=== PATIENT | female | born 1945 | race Caucasian/White ===

== ENCOUNTER 2017-05-05 05:07 | Inpatient (IN) | payer OTHER ==
[~2017-05-05] VITALS: Ht 160 cm; Wt 64.5 kg
[2017-05-05 05:44] LABS: BASOPHIL % 0.2 % (0-2)
[2017-05-05 05:45] LABS: PLATELET COUNT 86 x10^3mcL (130-400); RED CELL DISTRIBUTION WIDTH 15.6 % (11.5-14.5)
[2017-05-05 05:53] LABS: CARBON DIOXIDE 22.5 mmol/L (21-32); CREATININE SERUM 1.1 mg/dL (0.6-1.0); POTASSIUM SERUM 3.5 mmol/L (3.5-5.1)
[2017-05-05 06:00] LABS: ALBUMIN 3.6 g/dL (3.4-5.0); BILIRUBIN TOTAL 1.26 mg/dL (0.20-1.00); TOTAL PROTEIN, SERUM 6.7 g/dL (6.4-8.2)
[2017-05-05] MEDS ORDERED: METFORMIN HCL500 MG PO (08:05)
[2017-05-05] MEDS ORDERED: ZESTRIL20 MG PO (08:05)
[2017-05-05] MEDS ORDERED: NOR5 PO (08:05)
[2017-05-05 09:08] LABS: T3 TOTAL 1.05 ng/mL
[2017-05-05 10:20] VITALS: BP 99/58
[2017-05-05 10:22] LABS: CHOLESTEROL/HDL RATIO 2.6; MAGNESIUM 1.2 mg/dL (1.8-2.4)
[2017-05-05 10:25] LABS: FREE T4 1.27 ng/dL (0.76-1.46); FREE THYROXINE INDEX 3.1 ug/dL (1.4-4.5); T4(THYROXINE) 8.4 ug/dL (4.7-13.3)
[2017-05-05 17:45] VITALS: BP 108/87
[2017-05-05 18:22] LABS: UA SPECIFIC GRAVITY 1.015 (1.005-1.035); microscopic required? YES; urine erythrocyte TRACE (NEGATIVE)
[2017-05-05 21:15] VITALS: BP 93/53
[2017-05-06 05:55] LABS: BASOPHIL % 0.3 % (0-2)
[2017-05-06 06:19] LABS: ALKALINE PHOSPHATASE 87 U/L (46-116); ALT/SGPT 43 U/L (14-59); AST/SGOT 27 U/L (15-37); BILIRUBIN TOTAL 1.1 mg/dL (0.20-1.00); CALCIUM 8.6 mg/dL (8.5-10.1); CARBON DIOXIDE 24.7 mmol/L (21-32); CHLORIDE SERUM 107 mmol/L (98-107); CREATININE SERUM 0.7 mg/dL (0.6-1.0); GFR1 > 60 mL/min; GLUCOSE SERUM 118 mg/dL (74-106); MAGNESIUM 2.1 mg/dL (1.8-2.4); PHOSPHOROUS 2.1 mg/dL (2.5-4.9); POTASSIUM SERUM 3.8 mmol/L (3.5-5.1); SODIUM SERUM 139 mmol/L (136-145)
[2017-05-06 06:26] LABS: ALBUMIN 2.7 g/dL (3.4-5.0); TOTAL PROTEIN, SERUM 5.5 g/dL (6.4-8.2)
[2017-05-06 06:34] VITALS: BP 103/59
[2017-05-06 07:20] LABS: PLATELET COUNT 73 x10^3mcL (130-400); RED CELL DISTRIBUTION WIDTH 15.6 % (11.5-14.5)
[2017-05-06 08:00] VITALS: BP 115/70
[2017-05-06] MEDS ORDERED: PREDNISONE10 MG PO (09:48)
[2017-05-06 17:58] VITALS: BP 98/64
[2017-05-06 21:57] VITALS: BP 103/60
[2017-05-07 05:48] VITALS: BP 126/57
[2017-05-07 05:59] LABS: BASOPHIL % 0.2 % (0-2)
[2017-05-07 06:44] LABS: CALCIUM 8.6 mg/dL (8.5-10.1); CARBON DIOXIDE 21.9 mmol/L (21-32); CHLORIDE SERUM 108 mmol/L (98-107); CREATININE SERUM 0.7 mg/dL (0.6-1.0); GFR1 > 60 mL/min; GLUCOSE SERUM 117 mg/dL (74-106); PHOSPHOROUS 2.4 mg/dL (2.5-4.9); SODIUM SERUM 140 mmol/L (136-145)
[2017-05-07 06:56] LABS: PLATELET COUNT 89 x10^3mcL (130-400); RED CELL DISTRIBUTION WIDTH 15.3 % (11.5-14.5)
[2017-05-07 09:42] VITALS: BP 115/60
[2017-05-07 10:14] VITALS: BP 115/60
[2017-05-07] MEDS ORDERED: LEVAQUIN250 M1 PO (10:15)
[2017-05-07] MEDS ORDERED: LAC PO (10:23)
== END 2017-05-07 12:15 | disposition home or self-care (01) | DRG 871 ==
LOC: ED 05:07 → DU 08:10 → MU 05-06 09:36
PROVIDERS: Emergency Medicine; Family Medicine; ADMIT Family Medicine
DX: A41.9 Sepsis, unspecified organism (principal); N17.0 Acute kidney failure with tubular necrosis; G93.41 Metabolic encephalopathy; D69.3 Immune thrombocytopenic purpura; D68.69 Other thrombophilia; N39.0 Urinary tract infection, site not specified; K52.9 Noninfective gastroenteritis and colitis, unspecified; R65.20 Severe sepsis without septic shock; E11.65 Type 2 diabetes mellitus with hyperglycemia; E11.51 Type 2 diabetes mellitus with diabetic peripheral angiopathy without gangrene; E83.42 Hypomagnesemia; K74.60 Unspecified cirrhosis of liver; M85.80 Other specified disorders of bone density and structure, unspecified site; E83.39 Other disorders of phosphorus metabolism; E80.6 Other disorders of bilirubin metabolism; M19.90 Unspecified osteoarthritis, unspecified site; R74.0 Nonspecific elevation of levels of transaminase and lactic acid dehydrogenase [LDH]; Z96.651 Presence of right artificial knee joint; Z68.25 Body mass index [BMI] 25.0-25.9, adult; Z79.84 Long term (current) use of oral hypoglycemic drugs
CPT/HCPCS: 82962; 83880; 84439; J1956; J2405; J3475; J7030; J7512; Q0092